=== PATIENT | male | born 1980 | race Caucasian/White ===

== ENCOUNTER 2018-06-09 01:52 | Emergency (ER) | payer MEDICAID ==
[2018-06-09 02:50] LABS: ADD MAN DIFF? NO
[2018-06-09] MEDS: ACETAMINOPHEN 325 MG TAB PO (02:51)
[2018-06-09 02:52] LABS: WHITE BLOOD COUNT 8.5 10^3/ul (4.8-10.8)
[2018-06-09 02:52] LABS: ADD UMIC NO; BASOPHILS % 0.4 % (0.0-2.0); EOSINOPHILS # 0.1 10^3/ul (0.0-0.5); EOSINOPHILS % 1.4 % (0.0-7.0); HEMATOCRIT 49.8 % (42.0-52.0); HEMOGLOBIN 16.4 g/dl (14.0-18.0); LYMPHOCYTES # 3.4 10^3/ul (0.8-2.9); LYMPHOCYTES % 39.5 % (15.0-51.0); MEAN CORPUSCULAR HEMOGLOBIN 32.5 pg (29.0-33.0); MEAN CORPUSCULAR HGB CONC 32.9 g/dl (32.0-37.0); MEAN CORPUSCULAR VOLUME 98.8 fl (82.0-101.0); MEAN PLATELET VOLUME 9.4 fl (7.4-10.4); MONOCYTE # 0.9 10^3/ul (0.3-0.9); NEUTROPHILS % 47.2 % (39.0-77.0); PLATELET COUNT 243 10^3/UL (140-415); RED BLOOD COUNT 5.04 10^6/ul (4.70-6.10); RED CELL DISTRIBUTION WIDTH 12.4 % (11.5-14.5); UR ASCORBIC ACID NEGATIVE (NEGATIVE); UR BILIRUBIN (Dip) NEGATIVE (NEGATIVE); UR BLOOD (Dip) NEGATIVE (NEGATIVE); UR CLARITY CLEAR (CLEAR); UR COLOR YELLOW (YELLOW); UR GLUCOSE (Dip) NEGATIVE (NEGATIVE); UR KETONES (Dip) NEGATIVE (NEGATIVE); UR LEUKOCYTE ESTERASE (Dip) NEGATIVE Leu/ul (NEGATIVE); UR NITRITE (Dip) NEGATIVE (NEGATIVE); UR SPECIFIC GRAVITY (Dip) 1.023 (1.003-1.030); UR TOTAL PROTEIN (Dip) NEGATIVE (NEGATIVE); UR UROBILINOGEN (Dip) NEGATIVE (NEGATIVE)
[2018-06-09 03:08] LABS: ALANINE AMINOTRANSFERASE 69 IU/L (13-69); ALBUMIN 4.6 g/dl (3.3-4.9); ALBUMIN/GLOBULIN RATIO 1.27; ALKALINE PHOSPHATASE 114 IU/L (42-121); ANION GAP 11 (5-13); ASPARTATE AMINO TRANSFERASE 66 IU/L (15-46); BILIRUBIN,INDIRECT 0.3 mg/dl (0-1.1); BILIRUBIN,TOTAL 0.3 mg/dl (0.2-1.3); BLOOD UREA NITROGEN 13 mg/dl (7-20); CALCIUM 9.2 mg/dl (8.4-10.2); CARBON DIOXIDE 27 mmol/L (21-31); CHLORIDE 104 mmol/L (97-110); CREATININE 0.66 mg/dl (0.61-1.24); Estimated GFR > 60 mL/min (>60); GLUCOSE 124 mg/dl (70-220); LIPASE 61 U/L (23-300); POTASSIUM 4.3 mmol/L (3.5-5.1); SODIUM 142 mmol/L (135-144); TOTAL PROTEIN 8.2 g/dl (6.1-8.1)
== END 2018-06-09 04:00 | disposition home or self-care (01) ==
LOC: FTE 04:00
DX: K42.9 Umbilical hernia without obstruction or gangrene (principal)
CPT/HCPCS: 36415; 74176; 80053; 81003; 83690; 85025; 99284-25

== ENCOUNTER 2018-06-20 08:21 | Emergency (ER) | payer MEDICAID ==
[2018-06-20] MEDS: HYDROCODONE/APAP (5/325) TAB PO (08:52)
[2018-06-20] MEDS: ONDANSETRON (ODT) 4 MG TAB ODT (08:52)
[2018-06-20 10:02] LABS: ADD UMIC NO; UR ASCORBIC ACID NEGATIVE (NEGATIVE); UR BILIRUBIN (Dip) NEGATIVE (NEGATIVE); UR BLOOD (Dip) NEGATIVE (NEGATIVE); UR CLARITY CLEAR (CLEAR); UR COLOR YELLOW (YELLOW); UR GLUCOSE (Dip) NEGATIVE (NEGATIVE); UR KETONES (Dip) NEGATIVE (NEGATIVE); UR LEUKOCYTE ESTERASE (Dip) NEGATIVE Leu/ul (NEGATIVE); UR NITRITE (Dip) NEGATIVE (NEGATIVE); UR SPECIFIC GRAVITY (Dip) 1.017 (1.003-1.030); UR TOTAL PROTEIN (Dip) NEGATIVE (NEGATIVE); UR UROBILINOGEN (Dip) NEGATIVE (NEGATIVE)
[2018-06-20] MEDS: AZITHROMYCIN 250 MG TAB PO (10:18)
[2018-06-20] MEDS: LIDOCAINE 1% (MPF) 5 ML VIAL INFIL (10:18)
[2018-06-20] MEDS: CEFTRIAXONE 1 GM INJ IM (10:18)
== END 2018-06-20 11:05 | disposition home or self-care (01) ==
LOC: FTE 08:21
DX: K42.9 Umbilical hernia without obstruction or gangrene (principal); R30.0 Dysuria
CPT/HCPCS: 76775; 81003; 87591; 96372; 99285-25

== ENCOUNTER 2019-01-18 16:06 | Emergency (ER) | payer MEDICAID ==
[2019-01-18] MEDS: KETOROLAC 30 MG INJ IM (16:38)
[2019-01-18] MEDS: BUPIVACAINE 0.5% (SDV) 30 ML INJ INJ (19:02)
[2019-01-18] MEDS: LIDOCAINE 1% (MDV) 20 ML INJ SC (19:02)
[2019-01-18 21:18] LABS: ADD MAN DIFF? NO
[2019-01-18 21:20] LABS: WHITE BLOOD COUNT 9.9 10^3/ul (4.8-10.8)
[2019-01-18 21:20] LABS: BASOPHIL # 0.1 10^3/ul (0.0-0.1); BASOPHILS % 0.6 % (0.0-2.0); EOSINOPHILS % 0.3 % (0.0-7.0); HEMATOCRIT 47.1 % (42.0-52.0); HEMOGLOBIN 15.7 g/dl (14.0-18.0); LYMPHOCYTES # 3.2 10^3/ul (0.8-2.9); MEAN CORPUSCULAR HEMOGLOBIN 32.9 pg (29.0-33.0); MEAN CORPUSCULAR HGB CONC 33.3 g/dl (32.0-37.0); MEAN CORPUSCULAR VOLUME 98.7 fl (82.0-101.0); MEAN PLATELET VOLUME 9.8 fl (7.4-10.4); MONOCYTE # 1.5 10^3/ul (0.3-0.9); MONOCYTES % 14.6 % (0.0-11.0); NEUTROPHIL # 5.1 10^3/ul (1.6-7.5); NEUTROPHILS % 51.8 % (39.0-77.0); PLATELET COUNT 209 10^3/UL (140-415); RED BLOOD COUNT 4.77 10^6/ul (4.70-6.10)
[2019-01-18] MEDS ORDERED: ONDANSETRON 4 MG INJ IV ×2 (21:30→22:30)
[2019-01-18] MEDS ORDERED: ACETAMINOPHEN 325 MG TAB PO ×2 (21:30→22:30)
[2019-01-18 21:48] LABS: INR 0.92; PROTIME 12.5 Sec (11.9-14.9)
[2019-01-18 21:49] LABS: PARTIAL THROMBOPLASTIN TIME 22.6 Sec (23.0-35.0)
[2019-01-18 21:51] LABS: ALANINE AMINOTRANSFERASE 52 IU/L (13-69); ALBUMIN 4.2 g/dl (3.3-4.9); ALBUMIN/GLOBULIN RATIO 1.13; ALKALINE PHOSPHATASE 101 IU/L (42-121); ANION GAP 10 (5-13); ASPARTATE AMINO TRANSFERASE 48 IU/L (15-46); BILIRUBIN,INDIRECT 0.8 mg/dl (0-1.1); BILIRUBIN,TOTAL 0.8 mg/dl (0.2-1.3); BLOOD UREA NITROGEN 16 mg/dl (7-20); CALCIUM 8.9 mg/dl (8.4-10.2); CARBON DIOXIDE 24 mmol/L (21-31); CHLORIDE 105 mmol/L (97-110); CREATININE 0.56 mg/dl (0.61-1.24); Estimated GFR > 60 mL/min (>60); GLUCOSE 94 mg/dl (70-220); POTASSIUM 4.1 mmol/L (3.5-5.1); SODIUM 139 mmol/L (135-144); TOTAL PROTEIN 7.9 g/dl (6.1-8.1)
[2019-01-18] MEDS ORDERED: NACL 0.9% 3 ML SYG IV (22:30)
[2019-01-18] MEDS ORDERED: HYDROCODONE/APAP (5/325) TAB PO (22:30)
[2019-01-18] MEDS ORDERED: morphine 2 MG INJ IV (22:30)
[2019-01-18] MEDS ORDERED: BISACODYL (EC) 5 MG TAB PO (22:30)
[2019-01-18] MEDS ORDERED: DOCUSATE SODIUM 100 MG CAP PO (22:30)
[2019-01-18] MEDS: AMPICILLIN/SULB 3 GM/NS (PMX) 100 ML IVPB (23:35)
[2019-01-19] MEDS: SOD CHLORIDE 0.9% 1,000 ML IV (00:15)
== END 2019-01-19 01:23 | disposition short-term general hospital (02) ==
LOC: E/R 01-19 01:23 → FTE 16:06
DX: S82.852A Displaced trimalleolar fracture of left lower leg, initial encounter for closed fracture (principal); S90.512A Abrasion, left ankle, initial encounter; S00.81XA Abrasion of other part of head, initial encounter; S02.81XA Fracture of other specified skull and facial bones, right side, initial encounter for closed fracture; R40.2142 Coma scale, eyes open, spontaneous, at arrival to emergency department; R40.2252 Coma scale, best verbal response, oriented, at arrival to emergency department; R40.2362 Coma scale, best motor response, obeys commands, at arrival to emergency department; R51 Headache; W01.198A Fall on same level from slipping, tripping and stumbling with subsequent striking against other object, initial encounter; Y92.832 Beach as the place of occurrence of the external cause; Z87.891 Personal history of nicotine dependence
CPT/HCPCS: 27840; 70450; 70486; 71045; 73590; 73610; 73630-LT; 80053; 85025; 85610; 85730; 93005; 96365; 96372; 99285-25

== ENCOUNTER 2019-01-22 12:41 | Emergency (ER) | payer MEDICAID | END 2019-01-22 15:01 | disposition home or self-care (01) | LOC: FTE 15:01 | DX: S82.892A Other fracture of left lower leg, initial encounter for closed fracture (principal); X58.XXXA Exposure to other specified factors, initial encounter; Y92.9 Unspecified place or not applicable | CPT/HCPCS: 29515; 99283-25 ==

== ENCOUNTER 2019-01-26 06:14 | Emergency (ER) | payer MEDICAID | END 2019-01-26 07:41 | disposition home or self-care (01) | LOC: E/R 06:14 | DX: Z48.01 Encounter for change or removal of surgical wound dressing (principal); F17.210 Nicotine dependence, cigarettes, uncomplicated | CPT/HCPCS: 99281; Z7502 ==

== ENCOUNTER 2019-03-04 13:00 | Emergency (ER) | payer MEDICAID | END 2019-03-04 13:30 | disposition home or self-care (01) | LOC: E/R 13:30 | DX: Z48.01 Encounter for change or removal of surgical wound dressing (principal); Z98.890 Other specified postprocedural states | CPT/HCPCS: 99281; Z7502 ==